=== PATIENT | female | born 1995 ===

== ENCOUNTER 2016-12-29 13:09 | Emergency (ER) | payer OTHER ==
[2016-12-29 13:25] VITALS: BP 102/69; PULSE 62; TEMP 98.7
[2016-12-29 13:38] VITALS: RESP 18; O2SAT 98
--- NOTE | 2016-12-29 13:50 | ED PDOC ---
Arrival/HPI - General Chief Complaint: Abdominal Pain Time Seen by Provider: 12/29/16 13:12 Historian: Patient, Spouse - History of Present Illness Narrative History of Present Illness (Text): The patient is a 21 y/o female, presents to the ED for evaluation of suprapubic pain, described as throbbing and cramping like, associated with 3x days of vaginal spotting. Pt reports she has had similar symptoms for the past 3 months when she is expecting her menstrual period but has had only spotting instead of normal flow. Denies any fever, nausea, vomiting, dysuria or hematuria. She offers no additional medical complaints. States has been attempting to get . Time/Duration: > month (3) Symptom Onset: Gradual Quality: Cramping, Throbbing Past Medical History - Provider Review Nursing Documentation Reviewed: Yes - Past History Past History: No Previous - Infectious Disease Hx of Infectious Diseases: None - Reproductive Menopause: No - Past Medical History Past Medical History: No Previous - Psychiatric Hx Substance Use: No - Anesthesia Hx Anesthesia: No Family/Social History - Physician Review Nursing Documentation Reviewed: Yes Family/Social History: No Known Family HX Smoking Status: Unknown If Ever Smoked Hx Alcohol Use: No Hx Substance Use: No Allergies/Home Meds Allergies/Adverse Reactions: Allergies No Known Allergies Allergy (Verified 12/13/15 12:38) Home Medications: Home Meds Medication Instructions Recorded Confirmed No Known Home Med 12/29/16 12/29/16 Review of Systems - Review of Systems Constitutional: Normal. absent: Fevers Eyes: Normal ENT: Normal Respiratory: Normal Cardiovascular: Normal Gastrointestinal: Abdominal Pain (suprapubic pain). absent: Nausea, Vomiting Genitourinary Female: Normal, Vaginal Bleeding (spotting x 3 days). absent: Dysuria, Hematuria Musculoskeletal: Back Pain (left flank pain) Skin: Normal Neurological: Normal Endocrine: Normal Hemo/Lymphatic: Normal Psychiatric: Normal Physical Exam - Physical Exam Narrative Physical Exam (Text): Constitutional: No acute distress. Head: Normocephalic. Atraumatic. Eyes: PERRL. ENT: Moist mucous membranes. Neck: Supple. Cardiovascular: Regular rate. Chest: No tenderness. Respiratory: Clear to auscultation bilaterally. GI: Soft. Mild suprapubic tenderness. No mass, guarding or rebound. Back: No CVA tenderness. Musculoskeletal: No tenderness or swelling of extremities. Skin: No rash. Neurologic: Alert, no focal deficit. Vital Signs Reviewed: Yes Vital Signs Temp Pulse Resp BP Pulse Ox 12/29/16 13:37 98.7 F 62 18 102/69 98 12/29/16 13:21 98.7 F 62 16 102/69 100 Temperature: Afebrile Blood Pressure: Normal Pulse: Regular Respiratory Rate: Normal Appearance: Positive for: Non-Toxic, Comfortable Pain Distress: None Mental Status: Positive for: Alert and Oriented X 3 Medical Decision Making ED Course and Treatment: -- Urine culture -- Urinalysis UA negative for infection and . Will require further evaluation with OBGYN as outpatient. Instructed to return to ED for worsening pain, fever, vomiting, presyncope, or any other problem. - Lab Interpretations Lab Results: Lab Results 12/29/16 13:54: Urine Color Yellow, Urine Appearance Sl cloudy, Urine pH 7.0, Ur Specific [place] 1.020, Urine Protein Trace H, Urine Glucose (UA) Negative, Urine Ketones Negative, Urine Blood Large H, Urine Nitrate Negative, Urine Bilirubin Negative, Urine Urobilinogen 0.2, Ur Leukocyte Esterase Negative, Urine RBC 20 - 25, Urine WBC 0 - 2, Ur Epithelial Cells 6 - 8, Urine Bacteria Trace, Urine HCG, Qual Negative - Scribe Statement The provider has reviewed the documentation as recorded by the Eliecer Martinez Provider Attestation: All medical record entries made by the Eliecer were at my direction and personally dictated by me. I have reviewed the chart and agree that the record accurately reflects my personal performance of the history, physical exam, medical decision making, and the department course for this patient. I have also personally directed, reviewed, and agree with the discharge instructions and disposition. Disposition/Present on Arrival - Present on Arrival Any Indicators Present on Arrival: No History of DVT/PE: No History of Uncontrolled Diabetes: No Urinary Catheter: No History of Decub. Ulcer: No History Surgical Site Infection Following: None - Disposition Have Diagnosis and Disposition been Completed?: Yes Diagnosis: DUB (dysfunctional uterine bleeding) Disposition: HOME/ ROUTINE Disposition Time: 14:34 Patient Plan: Discharge Condition: STABLE Discharge Instructions (ExitCare): Dysfunctional Uterine Bleeding (ED) Referrals: [facility] at [facility] [Outside] - Follow up with primary Forms: [employer] (Malagasy)
[2016-12-29 14:08] LABS: URINE BILIRUBIN NEGATIVE (NEGATIVE); URINE BLOOD LARGE (NEGATIVE); URINE GLUCOSE (UA) NEGATIVE (NEGATIVE); URINE KETONE NEGATIVE (NEGATIVE); URINE LEUKOCYTE ESTERASE NEGATIVE Leu/uL (NEGATIVE); URINE PROTEIN TRACE mg/dL (<30 mg/dL); URINE UROBILINOGEN 0.2 E.U./dL (<1 E.U./dL)
[2016-12-29 14:13] LABS: URINE APPEARANCE SL CLOUDY (CLEAR); URINE COLOR YELLOW (YELLOW)
[2016-12-29 14:16] LABS: URINE RBC 20 - 25 /hpf (0-2)
[2016-12-29 14:17] LABS: URINE BACTERIA TRACE (NEG); URINE WBC 0 - 2 /hpf (0-6)
== END 2016-12-29 14:36 | disposition home or self-care (01) ==
LOC: ED 13:09
DX: N93.8 Other specified abnormal uterine and vaginal bleeding (principal)

== ENCOUNTER 2017-04-16 12:32 | Emergency (ER) | payer OTHER ==
[2017-04-16 12:55] VITALS: BMI 25.7
--- NOTE | 2017-04-16 13:36 | ED PDOC ---
Arrival/HPI - General Chief Complaint: Hip Pain Time Seen by Provider: 04/16/17 13:15 Historian: Patient - History of Present Illness Narrative History of Present Illness (Text): 04/16/17 13:36 A 21 year old female, whose past medical history includes colistic ovarian disease, presents to the emergency department complaining of sudden onset left- sided back pain associated with lower left pelvic pain that woke patient up from sleep. Patient reports also experiencing associated vomiting, non-bilious, non-bloody. Patient mentions no other complaints at this time. No PMD Symptom Onset: Sudden Symptom Course: Unchanged Past Medical History - Provider Review Nursing Documentation Reviewed: Yes - Past History Past History: No Previous - Infectious Disease Hx of Infectious Diseases: None - Reproductive Menopause: No - Past Medical History Past Medical History: No Previous - Psychiatric Hx Substance Use: No - Anesthesia Hx Anesthesia: No Family/Social History - Physician Review Nursing Documentation Reviewed: Yes Family/Social History: No Known Family HX Smoking Status: Unknown If Ever Smoked Hx Alcohol Use: No Hx Substance Use: No Allergies/Home Meds Allergies/Adverse Reactions: Allergies No Known Allergies Allergy (Verified 04/16/17 13:01) Review of Systems - Physician Review All systems were reviewed & negative as marked: Yes - Review of Systems Gastrointestinal: Vomiting (nonbilious, non-bloody) Musculoskeletal: Back Pain (left side associated with lower left pelvic pain) Physical Exam Vital Signs Reviewed: Yes Vital Signs Temp Pulse Resp BP Pulse Ox 04/16/17 17:33 88 16 134/72 100 04/16/17 16:18 97.9 F 81 16 116/74 99 04/16/17 15:37 75 18 134/75 98 04/16/17 12:55 99.4 F 79 16 138/84 99 Temperature: Afebrile Blood Pressure: Normal Pulse: Regular Respiratory Rate: Normal Appearance: Positive for: Well-Appearing Pain Distress: Mild Mental Status: Positive for: Alert and Oriented X 3 - Systems Exam Head: Present: Atraumatic, Normocephalic Pupils: Present: PERRL Extroacular Muscles: Present: EOMI Conjunctiva: Present: Normal Mouth: Present: Moist Mucous Membranes Neck: Present: Normal Range of Motion Respiratory/Chest: Present: Clear to Auscultation, Good Air Exchange. No: Respiratory Distress, Accessory Muscle Use Cardiovascular: Present: Regular Rate and Rhythm, Normal S1, S2. No: Murmurs Abdomen: Present: Normal Bowel Sounds, Other (left sided pelvic ttp ). No: Tenderness, Distention, Peritoneal Signs Genitourinary/Pelvic Exam: Present: Normal External Genitalia, Adenexal Tenderness, Other (+ left sided adnexal ttp >>rt sided adnexal ttp - reproductive of her pain) Back: Present: Normal Inspection Upper Extremity: Present: Normal Inspection. No: Cyanosis, Edema Lower Extremity: Present: Tenderness (left pelvic tenderness) Neurological: Present: GCS=15, CN II-XII Intact, Speech Normal Skin: Present: Warm, Dry, Normal Color. No: Rashes Psychiatric: Present: Alert, Oriented x 3, Normal Insight, Normal Concentration Medical Decision Making ED Course and Treatment: 04/16/17 13:41 Impression: 21 year old female with left side back pain with associated left lower pelvic pain. Physical exam shows left pelvic tenderness. Plan: -- Transvaginal Ultrasound -- Labs -- Urine Culture -- Toradol -- IV Fluids -- Reassess and disposition Prior Visits: Notes and results from previous visits were reviewed. Patient was last seen in the emergency department on 12/29/2016 for suprapubic pain. Patient was d/c home. Progress Notes: 04/16/2017 15:26 Transvaginal Ultrasound IMPRESSION: No evidence of acute pathology or suspicious lesion in the uterus and ovaries. Dictaor: Elida Kamara MD 04/16/17 17:17 Pt. is more comfortable although pain continues. Educated that her pain is likley related her pcos and her ovarian cystic pathology as per her pelvic exam. - Lab Interpretations Lab Results: 04/16/17 13:55 04/16/17 13:55 Lab Results 04/16/17 13:55: Sodium 140, Potassium 4.4, Chloride 102, Carbon Dioxide 28, Anion Gap 14, BUN 11, Creatinine 0.6 L, Est GFR ( Amer) > 60, Est GFR ( Non-Af Amer) > 60, Random Glucose 108, Calcium 9.7, Total Bilirubin 0.3, AST 37 H, ALT 57 H, Alkaline Phosphatase 57, Total Protein 8.4 H, Albumin 4.7, Globulin 3.7, Albumin/Globulin Ratio 1.3 04/16/17 13:55: WBC 7.6 D, RBC 4.68, Hgb 14.1, Hct 42.4, MCV 90.6, MCH 30.1, MCHC 33.3, RDW 13.1, Plt Count 257, MPV 9.9, Gran % 56.6, Lymph % (Auto) 36.4 H , [place] % (Auto) 6.0, Eos % (Auto) 0.5 L, Baso % (Auto) 0.5, Gran # 4.32, Lymph # 2.8, [place] # 0.5, Eos # 0.0, Baso # 0.04 04/16/17 13:55: Urine Color Yellow, Urine Appearance Turbid, Urine pH 6.5, Ur Specific [place] 1.025, Urine Protein 100 H, Urine Glucose (UA) Negative, Urine Ketones Negative, Urine Blood Moderate H, Urine Nitrate Negative, Urine Bilirubin Negative, Urine Urobilinogen 0.2, Ur Leukocyte Esterase Trace H, Urine RBC 2 - 5, Urine WBC 0 - 2, Ur Epithelial Cells 6 - 8, Urine Bacteria Trace, Urine HCG, Qual Negative I have reviewed the lab results: Yes - RAD Interpretation Radiology Orders: 04/16/17 13:41 TRANSVAGINAL [US] Stat - Medication Orders Current Medication Orders: Discontinued Medications Sodium Chloride (Sodium Chloride 0.9%) 1,000 mls @ 1,000 mls/hr IV .Q1H STA Stop: 04/16/17 14:40 Last Admin: 04/16/17 14:06 Dose: 1,000 mls/hr eMAR Start Stop Document 04/16/17 14:06 RD (Rec: 04/16/17 14:06 [place] [facility] [id number][place] Intravenous Solution Start Date 04/16/17 Start Time 14:06 End Date 04/16/17 End time 15:06 Total Infusion Time 60 Ketorolac Tromethamine (Toradol) 30 mg IVP STAT STA Stop: 04/16/17 13:44 Last Admin: 04/16/17 14:07 Dose: 30 mg MAR Pain Assessment Document 04/16/17 14:07 RD (Rec: 04/16/17 14:07 [facility] [id number][place] Pain Reassessment Is this a pain reassessment? No Sleep Is patient sleeping during reassessment? No Presence of Pain Presence of Pain Yes IVP Administration Document 04/16/17 14:07 RD (Rec: 04/16/17 14:07 [facility] [id number][place] Charges for Administration # of IVP Administrations 1 Oxycodone/Acetaminophen (Percocet 5/325 Mg Tab) 1 tab PO STAT STA Stop: 04/16/17 17:17 Last Admin: 04/16/17 17:32 Dose: 1 tab MAR Pain Assessment Document 04/16/17 17:32 OCS (Rec: 04/16/17 17:32 OCS [id number]) Pain Reassessment Is this a pain reassessment? Yes Sleep Is patient sleeping during reassessment? No Presence of Pain Presence of Pain Yes Pain Scale Used Pain Scale Used Numeric Location Left, Right or Bilateral Bilateral Upper or Lower Lower Pain Location Body Site Abdomen Back Description Description Constant Intensity of Pain at present 8 Pain Behavior Guarding Irritability Aggravating Factors ADL's - Scribe Statement The provider has reviewed the documentation as recorded by the Lachoibradha Rodríguez Provider Scribe Attestation: All medical record entries made by the Scribe were at my direction and personally dictated by me. I have reviewed the chart and agree that the record accurately reflects my personal performance of the history, physical exam, medical decision making, and the department course for this patient. I have also personally directed, reviewed, and agree with the discharge instructions and disposition. Disposition/Present on Arrival - Present on Arrival Any Indicators Present on Arrival: No History of DVT/PE: No History of Uncontrolled Diabetes: No Urinary Catheter: No History of Decub. Ulcer: No History Surgical Site Infection Following: None - Disposition Have Diagnosis and Disposition been Completed?: Yes Diagnosis: Ovarian cyst Disposition: HOME/ ROUTINE Disposition Time: 17:20 Patient Plan: Discharge Patient Problems: Current Active Problems Problem Status Onset Ovarian cyst Acute Condition: IMPROVED Discharge Instructions (ExitCare): Ovarian Cyst (ED), Polycystic Ovarian Syndrome (ED) Print Language: SOUTH SUDANESE Additional Instructions: Please follow up with the senior librarian doctor to which you've been referred. Prescriptions: Ibuprofen [Motrin Tab] 600 mg PO Q6 PRN #40 tab PRN Reason: Pain, Moderate (4-7) oxyCODONE/Acetaminophen [Percocet 5/325 mg Tab] 1 ea PO Q8 PRN #14 tab PRN Reason: Pain, Severe (8-10) Referrals: PCP,NO [Primary Care Provider] - Follow up with primary Yamini Queen MD [Non-Staff] - Follow up with primary Forms: [employer] (Kinyarwanda)
[2017-04-16] MEDS ORDERED: Sodium Chloride 0.9% 1,000 ML IV STA (13:41)
[2017-04-16 14:15] LABS: BASO # 0.04 K/mm3 (0.0-2.0); BASO % 0.5 % (0.0-3.0); EOS % 0.5 % (1.5-5.0); GRAN # 4.32 (1.4-6.5); GRAN % 56.6 % (50.0-68.0); HEMOGLOBIN 14.1 g/dL (12.0-16.0); LYMPH # 2.8 (1.2-3.4); LYMPH % 36.4 % (22.0-35.0); MEAN CELL VOLUME 90.6 fl (80.0-105.0); MEAN CORPUSCULAR HEMOGLOBIN 30.1 pg (25.0-35.0); MEAN CORPUSCULAR HGB CONC 33.3 g/dl (31.0-37.0); MEAN PLATELET VOLUME 9.9 fl (7.0-11.0); MONO # 0.5 (0.1-0.6); PH,URINE 6.5 (4.7-8.0); RBC 4.68 10^6/uL (3.5-6.1); RED CELL DISTRIBUTION WIDTH 13.1 % (11.5-14.5); URINE BILIRUBIN NEGATIVE (NEGATIVE); URINE BLOOD MODERATE (NEGATIVE); URINE GLUCOSE (UA) NEGATIVE (NEGATIVE); URINE LEUKOCYTE ESTERASE TRACE Leu/uL (NEGATIVE); URINE NITRATE NEGATIVE (NEGATIVE); URINE PROTEIN 100 mg/dL (<30 mg/dL); URINE UROBILINOGEN 0.2 E.U./dL (<1 E.U./dL)
[2017-04-16 14:19] LABS: HCG,QUALITATIVE URINE NEGATIVE (NEGATIVE); WHITE BLOOD COUNT 7.6 10^3/ul (4.5-11.0)
[2017-04-16 14:20] LABS: URINE APPEARANCE TURBID (CLEAR); URINE COLOR YELLOW (YELLOW)
[2017-04-16 14:24] LABS: ALBUMIN 4.7 g/dL (3.0-4.8); ALT/SGPT 57 U/L (7-56); AST/SGOT 37 U/L (14-36); BLOOD UREA NITROGEN 11 mg/dL (7-21); CALCIUM 9.7 mg/dL (8.4-10.5); GFR AFRICAN-AMERICAN > 60; GFR NON-AFRICAN AMERICAN > 60; URINE BACTERIA TRACE (NEG); URINE WBC 0 - 2 /hpf (0-6)
[2017-04-16 14:26] LABS: ALB/GLOB RATIO 1.3 (1.1-1.8)
--- NOTE | 2017-04-16 15:27 | US ---
HISTORY: hx of pcos/ left pelvic /back pain COMPARISON: None available. TECHNIQUE: Transabdominal and endovaginal ultrasound examination of the pelvis. FINDINGS: UTERUS: Measures 7.3 x 3.1 x 4.4 cm. Normal in size and appearance. No fibroid or other mass lesion seen. ENDOMETRIUM: Measures 4 mm in diameter. Unremarkable. CERVIX: No cervical abnormality identified. RIGHT OVARY: Measures 3.2 x 1.4 x 2.5 cm. No solid mass. Normal flow. 0.8 x 1 x 0.8 centimeter cyst likely represent prominent follicle. LEFT OVARY: Measures 2 x 1.3 x 2 cm. No solid mass. Normal flow. FREE FLUID: No significant free fluid noted. OTHER FINDINGS: None. IMPRESSION: No evidence of acute pathology or suspicious lesion in the uterus and ovaries.
[2017-04-16 16:22] VITALS: RESP 16; TEMP 97.9
[2017-04-16] MEDS ORDERED: Oxycodone/Acetaminophen 5/325 mg Tab PO STA (17:16)
[2017-04-16 17:33] VITALS: O2SAT 100
[2017-04-16 18:37] VITALS: BP 111/65; PULSE 78
== END 2017-04-16 18:15 | disposition home or self-care (01) ==
LOC: ED 12:32
DX: N83.201 Unspecified ovarian cyst, right side (principal)
CPT/HCPCS: 76830; 80053; 81001; 84703; 85025; 87086; 96361; 96374; 99285; J1885; J7040